=== PATIENT | female | born 1985 | race Caucasian/White ===

== ENCOUNTER 2016-10-27 13:19 | Emergency (ER) | payer SELFPAY ==
[~2016-10-27] VITALS: Ht 170.1 cm; Wt 77.1 kg
== END 2016-10-27 15:29 | disposition home or self-care (01) ==
LOC: ED 13:19
DX: S00.93XA Contusion of unspecified part of head, initial encounter (principal); S50.11XA Contusion of right forearm, initial encounter; S00.01XA Abrasion of scalp, initial encounter; V80.010A Animal-rider injured by fall from or being thrown from horse in noncollision accident, initial encounter; Y93.89 Activity, other specified; Y92.9 Unspecified place or not applicable; Y99.9 Unspecified external cause status

== ENCOUNTER → 2023-03-29 | Outpatient (CLI) | payer MEDICAID | END | disposition home or self-care (01) | LOC: MRI 13:40 | PROVIDERS: ATTEND Family Medicine | DX: R47.01 Aphasia (principal); R42 Dizziness and giddiness; S02.8 Fractures of other specified skull and facial bones; X58.XXXS Exposure to other specified factors, sequela ==

== ENCOUNTER → 2023-04-05 | Outpatient (CLI) | payer OTHER | END | disposition home or self-care (01) | LOC: US 11:00 | PROVIDERS: ATTEND Internal Medicine | DX: N89.8 Other specified noninflammatory disorders of vagina (principal); R25.2 Cramp and spasm ==

== ENCOUNTER → 2025-04-22 | Outpatient (CLI) | payer OTHER | END | disposition home or self-care (01) | LOC: US 10:22 | PROVIDERS: ATTEND Registered Nurse Emergency | DX: E04.2 Nontoxic multinodular goiter (principal) ==